=== PATIENT | female | born 2000 | race Two or more races ===

== ENCOUNTER 2024-10-26 00:22 | Inpatient (IN) | payer MEDICAID, SELFPAY ==
[2024-10-26] VITALS (16 sets, daily range): BP systolic 100–138; BP diastolic 65–83; PULSE 96–123; RESP 15–39; TEMP 36.6–39.4; O2SAT 93–98; BMI 68.6; BMI 70.9
--- NOTE | 2024-10-26 00:50 | XR_ITS ---
Examination: CT right lower leg with intravenous contrast, 2-D sagittal reconstructions. 2-D coronal reconstructions. 3-D reconstructions. Date and time of exam:October 26, 2024 0240 hours INDICATIONS: Rash redness swelling and pain right lower leg this week CTDI: vol (mGy):11 DLP: (mGycm):820 Technique: Multiple 1.25 mm axial sections of the 65 cc Isovue 370 have been obtained. 2-D sagittal and coronal reconstructions have been obtained. 3-D reconstructions have been obtained. Low dose protocols were performed. One or more of the following dose reduction techniques were used; automated exposure control, adjustment of the mA and/or KV according to patient size, use of iterative reconstruction technique. Findings: Distal femur and tibia-fibula are intact No cortical bone destruction Skin thickening anterior lower leg and edema in the subcutaneous fatty tissue No soft tissue abscess No foreign body Vasculature grossly intact, this is not a CTA study IMPRESSION: Cellulitis pattern in the lower leg Negative for osteomyelitis Negative for fasciitis or soft tissue abscess
--- NOTE | 2024-10-26 01:08 | XR_ITS ---
Examination: Duplex scan of the lower extremity, unilateral right complete Date and time of exam: October 26, 2024 0147 hours INDICATIONS: Right leg swelling and redness today, history fever the last 2 days Technique: Duplex scan of the extremity veins using B-mode/grayscale imaging and Doppler spectral analysis and color flow Attention is directed to internal echogenicity, compression and augmentation involving these veins, color flow assessment, spectral analysis Findings: Major deep venous structures in the extremity demonstrate normal course and caliber. There is no evidence of deep vein thrombosis. Normal color flow and spectral analysis Impression: Negative for DVT..
[2024-10-26] MEDS: SODIUM CHLORIDE 0.9% 1000 ML 1,000 ML 999 ML IV (01:12)
[2024-10-26] MEDS: KETOROLAC INJ 30 MG/ML VIAL IVP (01:12)
[2024-10-26] MEDS: PIPER/TAZO 3.375 GM PREMIX 3.375 GM/50 ML BAG IV ×4 (01:12→21:16)
[2024-10-26 01:39] LABS: Lactate (Lactic Acid) 1.8 mMol/L (0.4-2.0)
[2024-10-26 01:40] LABS: Basophils % (Auto) 0 % (0-2.5); Eosinophils # (Auto) 0.1 Thou/mm3 (0.0-0.5); Eosinophils % (Auto) 0 % (0-10); Hematocrit 38.1 % (36.0-46.0); Hemoglobin 12.3 g/dL (12.0-16.0); Immature Granulocytes % (Auto) 1 % (0-0); Immature Granulocytes Auto 0.11 Thou/mm3 (0.00-0.00); Lymphocytes # (Auto) 2.5 Thou/mm3 (1.0-4.8); Lymphocytes % (Auto) 15 % (10-50); Mean Corpuscular HGB Conc 32.3 g/dl (31.0-37.0); Mean Corpuscular Hemoglobin 27.4 pg (25.0-35.0); Mean Corpuscular Volume 85 fL (80-100); Monocytes # (Auto) 0.8 Thou/mm3 (0.0-0.8); Monocytes % (Auto) 5 % (0-12); Neutrophils # (Auto) 13.5 Thou/mm3 (1.8-7.7); Neutrophils % (Auto) 79 % (37-80); Nucleated Red Blood Cell % 0 /100 WBC (0); Platelet Count 347 Thou/mm3 (140-440); RDW Standard Deviation 47.8 fL (36.4-46.3); Red Blood Count 4.49 Miln/mm3 (4.00-5.20)
[2024-10-26 01:47] LABS: Sed Rate (ESR) 111 mm/hr (0-20)
--- NOTE | 2024-10-26 01:58 | PD.EDSKIN ---
ED Skin Abcess FB-RME/HPI General Chief complaint: Extremity Injury, Lower Stated complaint: RIGHT LEG REDNESS AND SWELLING, FEVER Time Seen by Provider: 10/26/24 00:49 Arrival date/time: 10/26/24 00:22 24F with history of morbid obesity presents to ED with 1 day of sudden RLE redness, swelling, pain, and fevers/chills. Patient denies open wound as well as fall/trauma. Limitations: no limitations Related Data Allergies Allergy/AdvReac Type Severity Reaction Status Date / Time No Known Allergies Allergy Verified 10/26/24 00:24 Review of Systems Review of Systems Systems Reviewed: All systems reviewed, normal except as documented Constitutional Constitutional: Reports system reviewed and no additional complaints, except as documented, Reports as per HPI, Reports chills, Reports fever(s) and Denies headache(s) ENT Ears, Nose, Mouth, and Throat: Denies disequilibrium and Denies headache(s) Cardiovascular Cardiovascular: Reports system reviewed and no additional complaints, except as documented, Denies chest pain and Denies dyspnea Respiratory Respiratory: Reports system reviewed and no additional complaints, except as documented, Denies cough and Denies dyspnea Gastrointestinal Gastrointestinal: Reports system reviewed and no additional complaints, except as documented, Denies abdominal pain, Denies nausea and Denies vomiting Integumentary/Breasts Skin/Breast: Reports as per HPI, Reports rash and Reports skin pain Neurologic Neurologic: Reports system reviewed and no additional complaints, except as documented, Denies confusion, Denies disequilibrium and Denies headache(s) Psychiatric Psychiatric: Denies confusion Past Medical History Past Medical History CARDIAC: Negative Cardiac Disorders or Congestive Heart Failure RESPIRATORY: Negative Chronic Obstructive Pulmonary Disease (COPD) or Asthma GENITOURINARY: Negative Renal Disease ENDOCRINE: Negative Diabetes Mellitus Type 1 or Diabetes Mellitus Type 2 HEMATOLOGIC: Negative Sickle Cell Disease Social History SMOKING STATUS: Never smoker ED Exam General Limitations: Present no limitations General appearance: Present alert and in no apparent distress Head Head exam: Present atraumatic Eye Eye exam: Present normal appearance, PERRL and EOMI ENT ENT exam: Present normal exam, normal oropharynx and mucous membranes moist Neck Neck exam: Present normal inspection, full ROM and trachea midline Chest Chest inspection: Present normal inspection and symmetric chest wall rise Respiratory Respiratory exam: Present normal lung sounds bilaterally Cardiovascular Cardiovascular exam: Present regular rate, normal rhythm and normal heart sounds Abdominal Exam Abdominal exam: Present soft and normal bowel sounds Extremities Exam Extremities exam: Present full ROM Expanded Lower Extremity Exam Lower leg exam: Present full ROM, tenderness, swelling and erythema Ankle exam: Present full ROM, tenderness, swelling and erythema Foot/toe exam: Present full ROM, tenderness, swelling and erythema Back Exam Back exam: Present normal inspection and full ROM Neurological Exam Neurological exam: Present alert, oriented X3 and CN II-XII intact Psychiatric Psychiatric exam: Present normal affect and normal mood Skin Skin exam: Present warm, dry, intact and normal color Course Quality Measures none Orders Category Date Time Status Bedside COVID-19 Antigen Test NOW Care 10/26/24 04:39 Active COVID-19 Screening Questionnaire NOW Care 10/26/24 04:[address] Screening NOW Care 10/26/24 00:51 Active Decision to Admit X1 Care 10/26/24 04:27 Completed Insert IV NOW Care 10/26/24 00:[address] lower leg RT w con Stat Exams 10/26/24 00:50 Taken US venous doppler LE RT Stat Exams 10/26/24 01:08 Taken A1C [Glycohemoglobin w (eAG)] Stat Lab 10/26/24 01:10 Completed Blood Culture (Lab) Stat Lab 10/26/24 01:10 Received CBC Stat Lab 10/26/24 01:10 Completed CRP [C-Reactive Protein] Stat Lab 10/26/24 01:10 Completed Comprehensive Metabolic Panel Stat Lab 10/26/24 01:10 Completed ESR [Sed Rate (ESR)] Stat Lab 10/26/24 01:10 Completed Lactate (Lactic Acid) Stat Lab 10/26/24 01:10 Completed Procalcitonin Stat Lab 10/26/24 01:10 Completed Ketorolac Inj [Toradol Inj] Med 10/26/24 00:50 Discontinued 30 mg IVP X1 ONE Piper/Tazo 3.375 gm Premix [Zosyn] Med 10/26/24 00:55 Discontinued 3.375 gm in 50 ml IV X1 Ringers Lactated 1000 ml [Lactated Ringers] 1,000 ml Med 10/26/24 02:48 Discontinued IV 999 mls/hr Sodium Chloride 0.9% 1000 ml [Ns] 1,000 ml Med 10/26/24 00:50 Discontinued IV 999 mls/hr Vancomycin Inj Med 10/26/24 01:20 Discontinued 2,000 mg .ROUTE .STK-MED ONE Vancomycin Inj 2,000 mg Med 10/26/24 01:05 Discontinued Sodium Chloride 0.9% 500 ml [Ns] 500 ml IV X1 Vancomycin Inj 2,000 mg Med 10/26/24 01:30 Discontinued Sodium Chloride 0.9% 500 ml [Ns] 500 ml IV X1 Vital Signs Vital signs: Vital Signs Temperature 100.3 F 10/26/24 00:43 Pulse Rate 123 H 10/26/24 00:43 Respiratory Rate 20 10/26/24 00:43 Blood Pressure 135/82 H 10/26/24 00:43 Pulse Oximetry (%) 98 10/26/24 00:43 Oxygen Delivery Method Room Air 10/26/24 00:43 O2 at 98% on RA and WNLs Skin / Abscess / Foreign Body MDM Narrative MDM Narrative:: 24F with history of morbid obesity presents to ED with 1 day of sudden RLE redness, swelling, pain, and fevers/chills. Patient denies open wound as well as fall/trauma. Physical exam reveals RLE redness, swelling, and tenderness. Gait normal. Patient is mildly febrile, but does not appear toxic. US no DVT. Leukocytosis 17k. Procal mildly elevated. Lactate normal. ESR/CRP significantly elevated. Sepsis alert called. Upon reassessment, patient is feeling better. CMP unremarkable except for elevated glucose. A1C of 7.5% confirms DM status. CT shows cellulitis. Spoke to IM resident who reports to Dr. Garcia, who will admit patient for Obs and IV ABX. Patient data External records reviewed:: None Clinical information provided by:: patient Social determinants that could affect healthcare access:: none Patient has the following chronic illnesses:: none How is presenting disease/condition affected by chronic disease/condition?: no chronic disease Evaluation data The following diagnostics were reviewed and interpreted by me:: lab results and radiology exam(s) Lab and/or radiology exams considered but not ordered:: ordered Interpretation Summary: above Medications / Prescriptions Medications or Prescriptions considered but not ordered:: ordered Medication administrations:: Medication Administration History Acetaminophen (Acetaminophen 325 Mg Tablet) 650 mg PO Q6H PRN PRN Reason: pain 1-3 and Fever >100.4 Stop: 11/25/24 04:52 Hydrocodone Bitart/Acetaminophen (Hydrocodone/Apap 5/325 Tablet) 1 tab PO Q4HR PRN PRN Reason: PAIN SCALE 4-10(Mod-Sev Stop: 10/31/24 04:52 Dextrose (Dextrose 50%-Water Inj 50 Ml Syringe) 25 ml IV Q15MIN PRN PRN Reason: BG 50-70 responsive npo pt Stop: 11/25/24 04:52 Dextrose (Dextrose 50%-Water Inj 50 Ml Syringe) 50 ml IV Q15MIN PRN PRN Reason: BG <50 OR BG <70 & pt unresponsive Stop: 11/25/24 04:52 Glucagon (Glucagon Inj 1 Mg Vial) 1 mg IM Q15MIN PRN PRN Reason: BG <70, and no IV access Heparin Sodium (Porcine) (Heparin Sod Inj 5000 Unit/Ml Vial) 5,000 unit SC Q8HR [facility] Stop: 11/09/24 05:59 Last Admin: 10/26/24 05:29 Dose: 5,000 unit Documented By: DARLINE Co-signed By: NICOLE Sodium Chloride (Ns) 1,000 mls @ 150 mls/hr IV .Q6H40M [facility] Stop: 10/26/24 11:39 Last Admin: 10/26/24 05:30 Dose: 150 mls/hr Documented By: DARLINE Piperacillin/Tazobactam/Dextrose (Zosyn) 3.375 gm in 50 mls @ 12.5 mls/hr IV Q8HR [facility]; Protocol Stop: 11/02/24 05:59 Last Admin: 10/26/24 05:30 Dose: 12.5 mls/hr Documented By: DARLINE Insulin Human Lispro (Insulin Lispro (Admelog) 1 Unit/0.01 Ml Unit) 0 unit SC [facility]; Protocol Stop: 11/25/24 07:29 Ondansetron HCl (Ondansetron Inj 2 Mg/Ml Inj 2 Ml) 4 mg IVP Q6H PRN; Protocol PRN Reason: NAUSEA OR VOMITING Stop: 11/25/24 04:52 Pharmacy Consult (Vancomycin Pharmacy To Dose 1 Each Each) 1 each IV QDAY [facility] Stop: 11/25/24 08:59 Discontinued Medications Sodium Chloride (Ns) 1,000 mls @ 999 mls/hr IV .Q1H1M ONE Stop: 10/26/24 01:50 Last Infusion: 10/26/24 02:19 Dose: Infused Documented By: Admin: 10/26/24 01:12 Dose: 999 mls/hr Documented By: NICOLE Vancomycin HCl 2,000 mg/ (Sodium Chloride) 500 mls @ 150 mls/hr IV X1 ONE Stop: 10/26/24 04:49 Last Admin: 10/26/24 02:11 Dose: 150 mls/hr Documented By: DARLINE Piperacillin/Tazobactam/Dextrose (Zosyn) 3.375 gm in 50 mls @ 100 mls/hr IV X1 ONE Stop: 10/26/24 01:24 Last Infusion: 10/26/24 01:49 Dose: Infused Documented By: Admin: 10/26/24 01:12 Dose: 100 mls/hr Documented By: NICOLE Vancomycin HCl 2,000 mg/ (Sodium Chloride) 500 mls @ 300 mls/hr IV X1 ONE Stop: 10/26/24 02:44 Last Admin: 10/26/24 02:12 Dose: Not Given Documented By: DARLINE Non-Admin Reason: Discontinued Lactated Ringer's (Lactated Ringers) 1,000 mls @ 999 mls/hr IV .Q1H1M ONE Stop: 10/26/24 03:48 Last Infusion: 10/26/24 03:58 Dose: Infused Documented By: Admin: 10/26/24 03:04 Dose: 999 mls/hr Documented By: CVJalil Ketorolac Tromethamine (Ketorolac Inj 30 Mg/Ml Vial) 30 mg IVP X1 ONE Stop: 10/26/24 00:51 Last Admin: 10/26/24 01:12 Dose: 30 mg Documented By: NICOLE Vancomycin HCl (Vancomycin Inj 1,000 Mg Vial) Confirm Administered Dose 2,000 mg .ROUTE .STK-MED ONE Stop: 10/26/24 01:21 Last Admin: 10/26/24 02:03 Dose: Not Given Documented By: CB Non-Admin Reason: Override Medication above Consultations Consultation(s) initiated? (list below): Yes Diagnosis Skin/Abscess Differential Diagnosis: abscess of skin or subcutaneous tissue, viral exanthem, dermatophytosis, urticaria, herpes zoster, allergic reaction to drug, cellulitis, eczema, insect bites, impetigo, contact dermatitis and other (nec fasc) Most likely diagnosis given after review of the tests above:: cellulitis and diabetes Admission Indicated Admission indicated?: indicated Admission Request Was there a request for admission?: Yes Admission Attestation Admission request attestation: Discussed case with [Dr. Garcia] from Hospitalist service regarding admission. Discussed patients ED course, exam findings, labs, and radiology results. The Hospitalist [agrees] to accept the patient for admission. Disposition Plan Disposition Plan: Admit Discharge Plan Plan Patient Disposition: Other Care w/in Hosp ([facility]) Problem List Clinical Impression: Cellulitis, Diabetes mellitus
[2024-10-26 02:00] LABS: Glucose Estimated Average 169 mg/dL (80-131); Hemoglobin A1C 7.5 % Hgb (4.8-6.0)
[2024-10-26] MEDS: Vancomycin Inj 2,000 MG in SODIUM CHLORIDE 0.9% 500 ML 500 ML 150 MG IV (02:11)
[2024-10-26 02:14] LABS: Alanine Aminotransferase 62 U/L (10-49); Albumin, Serum 4.4 gm/dL (3.5-5.0); Albumin/Globulin Ratio 1.2 (1.2-2.2); Alkaline Phosphatase 108 U/L (46-116); Anion Gap 11 (7-16); Aspartate Amino Transferase 54 U/L (0-34); BUN/Creatinine Ratio 12 Ratio (12-20); Bilirubin,Total 0.9 mg/dL (0.3-1.2); Blood Urea Nitrogen 11 mg/dL (9-23); C-Reactive Protein 25.6 mg/dL (0.0-0.9); Calcium 9.3 mg/dL (8.3-10.6); Calcium (Corrected) 9.3 mg/dL (8.5-10.1); Carbon Dioxide 23.8 mMol/L (20.0-31.0); Chloride 101 mMol/L (98-107); Creatinine (Component) 0.9 mg/dL (0.6-1.3); Estimated Creatinine Clearance 161.8 mL/min (>60); Globulin 3.7 gm/dL (2.3-3.5); Glucose 195 mg/dL (74-106); Osmolality,Calculated 276 (275-295); Potassium 3.4 mMol/L (3.4-5.1); Procalcitonin 1.68 ng/ml (0.0-0.49); Sodium 136 mMol/L (136-145); Total Protein 8.1 gm/dL (5.7-8.2); eGFR > 60 See Note
[2024-10-26] MEDS: RINGERS LACTATED 1000 ML 1,000 ML 999 ML IV (03:04)
--- NOTE | 2024-10-26 03:54 | PRELIM_ITS ---
Right lower extremity venous Doppler ultrasound with wave Doppler spectral analysis. October 26, 2024 0147 hours Clinical history: Rule out deep vein thrombosis. Technique: Duplex scan of the right lower extremity deep venous systems was performed utilizing 2D grayscale imaging, Doppler spectral analysis and color flow Doppler and with compression. Comparison: None. Findings: Melara scale, color flow and spectral Doppler evaluation of the right lower extremity deep veins were performed. The common femoral, superficial femoral and popliteal veins are patent and compressible. Normal respiratory variation is noted. There is no evidence of occlusive or nonocclusive thrombus. The great saphenous vein is patent and compressible at the level of the saphenofemoral junction. Hypoechoic nodule in the great saphenous vein area, probably lymph node. Edema. Impression: 1. No sonographic evidence of deep venous thrombosis in the right lower extremity. 2. Edema. 3. Lymph nodes adjacent to the great saphenous vein, possibly reactive. Please, correlate clinically. Report Electronically Signed By: Leonard Martell 10/26/2024 3:54:17 AM [EST]
--- NOTE | 2024-10-26 04:23 | PRELIM_ITS ---
CT angiogram of the right lower extremity with intravenous contrast (axial sections with sagittal and coronal reformats) October 26, 2024 at 0240 hours Clinical History: Rule out necrotizing fasciitis. Comparison: Ultrasound dated October 26, 2024. Findings: The right common femoral, superficial, deep femoral, popliteal, anterior tibial, peroneal and posterior tibial arteries are patent. No evidence of soft tissue emphysema. Subcutaneous fat edema. Skin thickening. Impression: The vasculature is patent. No evidence of necrotizing fasciitis. Subcutaneous fat edema and skin thickening, suspicious for cellulitis. Report Electronically Signed By: Leonard Martell 10/26/2024 4:25:17 AM [EST]
--- NOTE | 2024-10-26 05:00 | ESHP_ITS ---
Documentation for date of: 10/26/24 HPI History of Present Illness Chief complaint: R LE swelling and redness History of present illness: 24-year-old female with no relevant past medical history was admitted to the hospital on 10/26/2024 for observation given that patient came into the ER with complaints of right lower extremity, swelling and redness that started today. On assessment patient stated that she has had fevers and chills for around 2 days and these were accompanied with weakness and tiredness, but she does not recall having any sick contacts and she did not have any cough, shortness of breath, chest pain, nausea, vomiting, diarrhea, or burning sensation during urination. Patient stated that her right lower extremity got swollen and more red today in the morning and then at went away in the afternoon, but later in the evening came back and was much worse the redness and swelling. Patient states that she does not recall any trauma, insect or animal bites, or any injuries to this leg. She stated that it is nontender and did not hurt her with passive or active motion and she could bear weight.. Otherwise patient had no other complaints. Patient will be placed on observation given the significantly elevated inflammatory markers along with the extent of patient's cellulitis which extends from the right lower extremity up to the mid/lower posterior thigh. ED course: Initially patient came in tachycardic, mildly hypertensive, and low-grade fever. Initial labs were relevant for leukocytosis, elevated ESR (111), A1c of 7.5, elevated CRP at 25.6, and elevated procalcitonin at 1.68. Initial imaging included lower extremity CT which did not show any signs of necrotizing fasciitis, but did show cellulitis. Additional imaging included right lower extremity venous Doppler which was negative for any DVT. In the ED patient received vancomycin, Zosyn, and 2 L of IV fluids. PMH: None per patient Medications: None per patient Allergies: NKDA Social Hx: Denies any smoking, alcohol, or illicit drugs. Review of Systems Review of Systems Systems Reviewed: All systems reviewed, normal except as documented Past Medical History Past Medical History CARDIAC: Negative Cardiac Disorders or Congestive Heart Failure RESPIRATORY: Negative Chronic Obstructive Pulmonary Disease (COPD) or Asthma GENITOURINARY: Negative Renal Disease ENDOCRINE: Negative Diabetes Mellitus Type 1 or Diabetes Mellitus Type 2 HEMATOLOGIC: Negative Sickle Cell Disease Social History SMOKING STATUS: Never smoker Exam Vital Signs Temp Pulse Resp BP Pulse Ox O2 Del Method 99.7 F 97 29 H 126/68 94 L Room Air 10/26/24 02:18 10/26/24 04:35 10/26/24 04:35 10/26/24 04:35 10/26/24 04:35 10/26/24 04:35 Narrative Exam General: A/O x3, no acute distress Eyes: PERRL, EOMI. Anicteric, vision grossly intact. Ears: No ear pain, no ear discharge, Hearing grossly intact. Nose: No nasal discharge. Mouth/Throat: Moist mucous membranes, no redness, no lesions. Neck: Neck supple, non-tender, no cervical lymphadenopathy. Lungs: Clear TRACY to auscultation and percussion, No accessory muscle use. Cardio: Normal S1/S2, regular rhythm, no murmurs, no JVD Abdomen: Soft, non-tender, no palpable masses, peristalsis present, no guarding or rebound. Extremities: Symmetrical, no significant deformities, no peripheral edema , non-tender, peripheral pulses presents. Right lower extremity showed blanching erythema involving entire lower extremity and extending towards the posterior right thigh, this was not tender on palpation, and did not appreciate any crepitus. Skin: No rashes, no lesions, warm to touch. Neuro: No focal neurological deficits. Motor and sensory intact Psych: Cooperative, appropriate mood and effect. Results: Labs 10/26/24 06:15 10/26/24 01:10 Labs: Short CBC 10/26/24 Range/Units 01:10 WBC 17.0 H (3.6-11.0) Thou/mm3 Hgb 12.3 (12.0-16.0) g/dL Hct 38.1 (36.0-46.0) % Plt Count 347 (140-440) Thou/mm3 BMP 10/26/24 01:10 Sodium 136 Potassium 3.4 Chloride 101 Carbon Dioxide 23.8 BUN 11 Creatinine 0.9 Glucose 195 H Calcium 9.3 Liver Function 10/26/24 Range/Units 01:10 Total Bilirubin 0.9 (0.3-1.2) mg/dL AST 54 H (0-34) U/L ALT 62 H (10-49) U/L Alkaline Phosphatase 108 (46-116) U/L Albumin 4.4 (3.5-5.0) gm/dL Quality Measures Quality Measures none Medications Home Medications and Allergies Allergies Allergy/AdvReac Type Severity Reaction Status Date / Time No Known Allergies Allergy Verified 10/26/24 00:24 Visit Medications Acetaminophen (Acetaminophen 325 Mg Tablet) 650 mg PO Q6H PRN PRN Reason: pain and Fever >100.4 Stop: 11/25/24 04:52 Hydrocodone Bitart/Acetaminophen (Hydrocodone/Apap 5/325 Tablet) 1 tab PO Q4HR PRN PRN Reason: PAIN SCALE 4-10(Mod-Sev Stop: 10/31/24 04:52 Dextrose (Dextrose 50%-Water Inj 50 Ml Syringe) 25 ml IV Q15MIN PRN PRN Reason: BG 50-70 responsive npo pt Stop: 11/25/24 04:52 Dextrose (Dextrose 50%-Water Inj 50 Ml Syringe) 50 ml IV Q15MIN PRN PRN Reason: BG <50 OR BG <70 & pt unresponsive Stop: 11/25/24 04:52 Glucagon (Glucagon Inj 1 Mg Vial) 1 mg IM Q15MIN PRN PRN Reason: BG <70, and no IV access Heparin Sodium (Porcine) (Heparin Sod Inj 5000 Unit/Ml Vial) 5,000 unit SC Q8HR [facility] Stop: 11/09/24 05:59 Sodium Chloride (Ns) 1,000 mls @ 150 mls/hr IV .Q6H40M [facility] Stop: 10/26/24 11:39 Piperacillin/Tazobactam/Dextrose (Zosyn) 50 mls @ 100 mls/hr IV Q6HR [place] Stop: 11/02/24 09:24 Insulin Human Lispro (Insulin Lispro (Admelog) 1 Unit/0.01 Ml Unit) 0 unit SC [facility]; Protocol Stop: 11/25/24 07:29 Ondansetron HCl (Ondansetron Inj 2 Mg/Ml Inj 2 Ml) 4 mg IVP Q6H PRN; Protocol PRN Reason: NAUSEA OR VOMITING Stop: 11/25/24 04:52 Pharmacy Consult (Vancomycin Pharmacy To Dose 1 Each Each) 1 each IV QDAY [facility] Stop: 11/25/24 08:59 Discontinued Medications Sodium Chloride (Ns) 1,000 mls @ 999 mls/hr IV .Q1H1M ONE Stop: 10/26/24 01:50 Last Infusion: 10/26/24 02:19 Dose: Infused Vancomycin HCl 2,000 mg/ (Sodium Chloride) 500 mls @ 150 mls/hr IV X1 ONE Stop: 10/26/24 04:49 Last Admin: 10/26/24 02:11 Dose: 150 mls/hr Piperacillin/Tazobactam/Dextrose (Zosyn) 3.375 gm in 50 mls @ 100 mls/hr IV X1 ONE Stop: 10/26/24 01:24 Last Infusion: 10/26/24 01:49 Dose: Infused Vancomycin HCl 2,000 mg/ (Sodium Chloride) 500 mls @ 300 mls/hr IV X1 ONE Stop: 10/26/24 02:44 Last Admin: 10/26/24 02:12 Dose: Not Given Lactated Ringer's (Lactated Ringers) 1,000 mls @ 999 mls/hr IV .Q1H1M ONE Stop: 10/26/24 03:48 Last Infusion: 10/26/24 03:58 Dose: Infused Ketorolac Tromethamine (Ketorolac Inj 30 Mg/Ml Vial) 30 mg IVP X1 ONE Stop: 10/26/24 00:51 Last Admin: 10/26/24 01:12 Dose: 30 mg Assessment & Plan Plan 24-year-old female with no relevant past medical history was admitted to the hospital on 10/26/2024 on observation for right lower extremity cellulitis. #Right lower extremity cellulitis #Leukocytosis Patient came in with complaints of right lower extremity redness and swelling which started today She also mentions she had some fevers and chills for the past few days. Patient states it is nontender with active or passive motion and she is able to bear weight. WBC 17, ESR 111, CRP 25.6, procalcitonin 1.68 LRINEC score of 7 points indicate intermediate risk for necrotizing soft tissue infection. On physical assessment patient did not have any pain with passive or active motion therefore less likely compartment syndrome present at this time and there was no crepitus appreciated on physical exam, but given rapid course of development and there was still concern for NSTI. Lower extremity CT showed cellulitis, but no signs of necrotizing fasciitis Venous Doppler lower extremity did not show any signs of DVT Plan: Vancomycin and Zosyn (10/26/2024?) IV fluids Repeated CRP, lactic acid, and ESR Blood cultures ordered Consider surgical consult if patient does develop any signs of NSTI Will continue to monitor #Newly diagnosed DM2 A1c 7.5 Plan: ISS Hypoglycemia protocol ordered Carb consistent diet Disposition: Patient in obs for R LE cellulitis. Diet: Carb consistent GI prophylaxis: not indicated DVT prophylaxis: heparin subcu Code: full Case disclosed with Attending Dr. Jose Schaffer PGY1 Disclaimer: Even though this this note was dictated by speech recognition and even though it was carefully revised there may still be minor errors in auto body technician due to voice recognition software. Attending Provider Attestation/Addendum I reviewed labs, imaging, EKG, home medications and prior available records. Face to face evaluation was performed by me. I have personally examined the patient and discussed assessment and plan with the IM team. I reviewed the resident note and agree with the plan with exceptions as below. Right lower extremity cellulitis New onset diabetes mellitus, type I versus type II Morbid obesity Transaminitis Start IV vancomycin/Zosyn Follow-up cultures Right lower extremity elevation Management of pain/nausea/headaches as needed Trend LFTs Start insulin therapy and monitor fingersticks Low carb consistent diet. Diabetic education Outpatient weight management
[2024-10-26] MEDS: HEPARIN SOD INJ 5000 UNIT/ML VIAL SC ×3 (05:29→21:26)
[2024-10-26] MEDS: SODIUM CHLORIDE 0.9% 1000 ML 1,000 ML 150 ML IV (05:30)
[2024-10-26 06:22] LABS: Lactate (Lactic Acid) 0.9 mMol/L (0.4-2.0)
[2024-10-26 06:30] LABS: Basophils % (Auto) 0 % (0-2.5); Eosinophils # (Auto) 0.1 Thou/mm3 (0.0-0.5); Eosinophils % (Auto) 0 % (0-10); Hematocrit 32.8 % (36.0-46.0); Hemoglobin 10.3 g/dL (12.0-16.0); Immature Granulocytes % (Auto) 1 % (0-0); Lymphocytes # (Auto) 1.8 Thou/mm3 (1.0-4.8); Lymphocytes % (Auto) 14 % (10-50); Mean Corpuscular HGB Conc 31.4 g/dl (31.0-37.0); Mean Corpuscular Hemoglobin 26.8 pg (25.0-35.0); Mean Corpuscular Volume 85 fL (80-100); Monocytes # (Auto) 0.6 Thou/mm3 (0.0-0.8); Monocytes % (Auto) 5 % (0-12); Neutrophils # (Auto) 10.3 Thou/mm3 (1.8-7.7); Neutrophils % (Auto) 80 % (37-80); Nucleated Red Blood Cell % 0 /100 WBC (0); Platelet Count 257 Thou/mm3 (140-440); RDW Standard Deviation 48.9 fL (36.4-46.3); Red Blood Count 3.84 Miln/mm3 (4.00-5.20); White Blood Count 12.9 Thou/mm3 (3.6-11.0)
[2024-10-26 07:04] LABS: Sed Rate (ESR) 78 mm/hr (0-20)
[2024-10-26 07:18] LABS: Alanine Aminotransferase 46 U/L (10-49); Albumin, Serum 3.5 gm/dL (3.5-5.0); Albumin/Globulin Ratio 1.1 (1.2-2.2); Alkaline Phosphatase 84 U/L (46-116); Anion Gap 10 (7-16); Aspartate Amino Transferase 37 U/L (0-34); BUN/Creatinine Ratio 14 Ratio (12-20); Bilirubin,Total 0.7 mg/dL (0.3-1.2); Blood Urea Nitrogen 10 mg/dL (9-23); C-Reactive Protein > 10.0 mg/dL (0.0-0.9); Calcium 8.2 mg/dL (8.3-10.6); Calcium (Corrected) 8.6 mg/dL (8.5-10.1); Carbon Dioxide 23.7 mMol/L (20.0-31.0); Chloride 104 mMol/L (98-107); Cholesterol 103 mg/dL (132-200); Creatinine (Component) 0.7 mg/dL (0.6-1.3); Estimated Creatinine Clearance 212.8 mL/min (>60); Globulin 3.1 gm/dL (2.3-3.5); Glucose 187 mg/dL (74-106); HDL Cholesterol 26 mg/dL (40-60); LDL Cholesterol,Calculated 54 mg/dL (0-130); Magnesium 1.7 mg/dL (1.6-2.6); Osmolality,Calculated 279 (275-295); Potassium 3.5 mMol/L (3.4-5.1); Sodium 138 mMol/L (136-145); Total Protein 6.6 gm/dL (5.7-8.2); Triglycerides 116 mg/dL (30-150); eGFR > 60 See Note
[2024-10-26] MEDS: INSULIN LISPRO (AdmeLOG) 1 UNIT/0.01 ML UNIT SC ×4 (07:29→21:25)
[2024-10-26] MEDS: VANCOMYCIN/D5W 1,250 MG IVPB 250 ML 120 MG IV ×3 (07:30→21:12)
--- NOTE | 2024-10-26 09:58 | PD.RESPRO ---
Documentation for date of: 10/26/24 Subjective Subjective Interval history: Overnight admission. Seen and examined at bedside and cellulitis demarcated to further monitor progression. No fevers, chills, sweats overnight but did endorse same symptoms prior to coming to ED. Denies any loss of sensation or lower extremity weakness. States that she cannot recall any events that may have led to rash on lower extremities but developed over 24-hour period. Vital signs show heart rate 106 but otherwise vital signs stable. CBC showed improved leukocytosis from 17 to 13, A1c 7.5%, downtrending LFTs. Will continue with vancomycin and Zosyn for today and likely de-escalate tomorrow, blood cultures pending. Exam Vital Signs Temp Pulse Resp BP Pulse Ox O2 Del Method 98.4 F 106 H 15 138/73 H 96 Room Air 10/26/24 07:43 10/26/24 07:43 10/26/24 07:43 10/26/24 07:43 10/26/24 07:43 10/26/24 06:33 Narrative Exam General: pleasant, morbidly obese, AOx3, no acute distress, able to speak full sentences HEENT: NC/AT, mucous membranes moist, bilateral sclera anicteric Cardiovascular: regular rate and rhythm, S1/S2 present, no murmurs appreciated Pulmonary: clear to auscultation bilaterally, no rales/rhonchi/wheezes Abdominal: soft, non-tender, non-distended, no rebound/guarding, normal bowel sounds present Musculoskeletal: normal ROM, no peripheral edema Skin: right lower extremity with erythematous, cellulitic rash that is warm to touch and demarcated (extends to interior thigh) Neuro: CN II-XII intact, no focal deficits Objective Labs 10/27/24 05:12 10/27/24 05:12 Labs: Laboratory Results - last 24 hr 10/26/24 10/26/24 01:10 06:15 WBC 17.0 H 12.9 H RBC 4.49 3.84 L Hgb 12.3 10.3 L D Hct 38.1 32.8 L MCV 85 85 MCH 27.4 26.8 MCHC 32.3 31.4 RDW Std Deviation 47.8 H 48.9 H Plt Count 347 257 D Neut % (Auto) 79 80 Lymph % (Auto) 15 14 [place] % (Auto) 5 5 Eos % (Auto) 0 0 Baso % (Auto) 0 0 Neut # (Auto) 13.5 H 10.3 H Lymph # (Auto) 2.5 1.8 [place] # (Auto) 0.8 0.6 Eos # (Auto) 0.1 0.1 Baso # (Auto) 0.0 0.0 Immature Gran # (Auto) 0.11 H 0.10 H Absolute Nucleated RBC 0.00 0.00 Immature Gran % 1 H 1 H Nucleated RBC % 0 0 ESR 111 H 78 H Sodium 136 138 Potassium 3.4 3.5 Chloride 101 104 Carbon Dioxide 23.8 23.7 Anion Gap 11 10 BUN 11 10 Creatinine 0.9 0.7 Estim Creat Clear Calc 161.8 212.8 eGFR > 60 > 60 BUN/Creatinine Ratio 12 14 Glucose [address] Glu mg/dL 169 H Hemoglobin A1c 7.5 H Calculated Osmolality 276 279 Lactic Acid 1.8 0.9 Calcium 9.3 8.2 L Corrected Calcium 9.3 8.6 Magnesium 1.7 Total Bilirubin 0.9 0.7 AST 54 H 37 H ALT 62 H 46 Alkaline Phosphatase 108 84 D C-Reactive Prot, Quant 25.6 H > 10.0 H Total Protein 8.1 6.6 Albumin 4.4 3.5 D Globulin 3.7 H 3.1 Albumin/Globulin Ratio 1.2 1.1 L Triglycerides 116 Cholesterol 103 L LDL Cholesterol, Calc 54 HDL Cholesterol 26 L Cholesterol/HDL Ratio 4.0 Procalcitonin 1.68 H Quality Measures Quality Measures none Assessment & Plan Assessment Current Active Medications: Generic Name Dose Route Start Last Admin Trade Name Lorneq PRN Reason Stop Dose Admin Acetaminophen 650 mg 10/26/24 04:53 Acetaminophen 325 Mg Tablet PO 11/25/24 04:52 Q6H PRN pain 1-3 and Fever >100.4 Hydrocodone Bitart/Acetaminophen 1 tab 10/26/24 04:53 Hydrocodone/Apap 5/325 Tablet PO 10/31/24 04:52 Q4HR PRN PAIN SCALE 4-10(Mod-Sev Dextrose 25 ml 10/26/24 04:53 Dextrose 50%-Water Inj 50 Ml Syringe IV 11/25/24 04:52 Q15MIN PRN BG 50-70 responsive npo pt Dextrose 50 ml 10/26/24 04:53 Dextrose 50%-Water Inj 50 Ml Syringe IV 11/25/24 04:52 Q15MIN PRN BG <50 OR BG <70 & pt unresponsive Glucagon 1 mg 10/26/24 04:53 Glucagon Inj 1 Mg Vial IM Q15MIN PRN BG <70, and no IV access Heparin Sodium (Porcine) 5,000 unit 10/26/24 06:00 10/26/24 05:29 Heparin Sod Inj 5000 Unit/Ml Vial SC 11/09/24 05:59 5,000 unit Q8HR [place] Administration Piperacillin/Tazobactam/Dextrose 3.375 gm in 50 mls @ 12.5 mls/hr 10/26/24 06:00 10/26/24 06:08 Zosyn IV 11/02/24 05:59 Infused Q8HR KAROLINA Infusion Protocol Vancomycin HCl/Dextrose 250 mls @ 120 mls/hr 10/26/24 07:30 10/26/24 07:30 Vancomycin/D5w 1,250 Mg Ivpb IV 11/02/24 07:29 120 mls/hr Q8HR KAROLINA Administration Protocol Insulin Human Lispro 0 unit 10/26/24 07:30 10/26/24 07:29 Insulin Lispro (Admelog) 1 Unit/0.01 Ml Unit SC 11/25/24 07:29 1 unit ACHS KAROLINA Administration Protocol Ondansetron HCl 4 mg 10/26/24 04:53 Ondansetron Inj 2 Mg/Ml Inj 2 Ml IVP 11/25/24 04:52 Q6H PRN NAUSEA OR VOMITING Protocol Pharmacy Consult 1 each 10/26/24 09:00 Vancomycin Pharmacy To Dose 1 Each Each IV 11/25/24 08:59 QDAY PRN CONSULT Plan Bijal Yee is a 24-year-old female with past medical history of newly diagnosed diabetes mellitus and morbid obesity who is admitted for right lower extremity cellulitis and newly diagnosed diabetes. #Right lower extremity cellulitis Endorsed 2 to 3 days of fever, chills, sweats and then developed right lower extremity cellulitis that extends up to anterior thigh. Denies any loss of sensation or lower extremity weakness. CT lower extremity showed edema and subcutaneous fatty tissue but no signs of fasciitis or abscesses. Venous Doppler negative for DVT. ? Vancomycin and Zosyn (10/26-) ? Blood culture 10/26: NGTD ? Continue to monitor demarcations #Newly diagnosed diabetes mellitus Given body habitus likely type 2 diabetes mellitus. A1c 7.5%. ? SSI ? Hypoglycemia protocol in place ? Carb consistent low diet ? Diabetic education ? Referral to registered dietitian Hospital management: Disposition: IV antibiotics, blood cultures Fluids: Not indicated Diet: Carb consistent low Lines: PIV DVT prophylaxis: Heparin SC every 8 hours GI prophylaxis: Not indicated Luis: None indicated CODE STATUS: full code ----- Plan discussed with attending physician Dr. Jackelyn Turpin MD PGY-1 Internal Medicine Attending Provider Attestation/Addendum I have examined the patient, reviewed labs and imaging findings, discussed the case with the resident(s), and reviewed entered orders. I agree with the plan of care as outlined in this note, with these additional summaries/recommendations: Patient seen at bedside. She endorses right lower extremity discomfort and pain. Patient has significant cellulitis of right lower extremity up to mid thigh. Borders are marked and we will monitor progression or improvement of rash. Continue IV antibiotics and follow-up blood culture results when available. Leukocytosis improving although not resolved. Patient diagnosed with new onset diabetes mellitus type 2 with hyperglycemia. She denies a previous history. A1c 7.5%. Continue diabetic diet. Continue insulin sliding scale with Accu-Cheks. Target blood sugar of 140-180 while hospitalized. Patient was counseled on the importance of weight loss and showed understanding. Patient in agreement with the plan and all questions answered to satisfaction. Please see residents note for additional details and management. Dr. Jackelyn MD
[2024-10-26] MEDS: ACETAMINOPHEN 325 MG TABLET 650 MG PO (15:58)
[2024-10-26] MEDS: IBUPROFEN TAB 400 MG TABLET PO (17:26)
[2024-10-27] VITALS (8 sets, daily range): BP systolic 99–132; BP diastolic 71–85; PULSE 87–109; RESP 16–20; TEMP 36.2–38.1; O2SAT 94–98; BMI 70.6
[2024-10-27] MEDS: ONDANSETRON INJ 2 MG/ML INJ 2 ML 4 MG IVP (04:45)
[2024-10-27] MEDS: PIPER/TAZO 3.375 GM PREMIX 3.375 GM/50 ML BAG IV ×3 (05:49→21:34)
[2024-10-27] MEDS: HEPARIN SOD INJ 5000 UNIT/ML VIAL SC ×3 (05:52→21:43)
[2024-10-27 05:54] LABS: Basophils % (Auto) 0 % (0-2.5); Eosinophils # (Auto) 0.1 Thou/mm3 (0.0-0.5); Eosinophils % (Auto) 1 % (0-10); Hemoglobin 10.6 g/dL (12.0-16.0); Immature Granulocytes % (Auto) 1 % (0-0); Immature Granulocytes Auto 0.09 Thou/mm3 (0.00-0.00); Lymphocytes # (Auto) 1.6 Thou/mm3 (1.0-4.8); Lymphocytes % (Auto) 14 % (10-50); Mean Corpuscular HGB Conc 31.2 g/dl (31.0-37.0); Mean Corpuscular Hemoglobin 26.6 pg (25.0-35.0); Mean Corpuscular Volume 85 fL (80-100); Monocytes # (Auto) 0.8 Thou/mm3 (0.0-0.8); Monocytes % (Auto) 8 % (0-12); Neutrophils # (Auto) 8.4 Thou/mm3 (1.8-7.7); Neutrophils % (Auto) 76 % (37-80); Nucleated Red Blood Cell % 0 /100 WBC (0); Platelet Count 310 Thou/mm3 (140-440); RDW Standard Deviation 49.3 fL (36.4-46.3); Red Blood Count 3.98 Miln/mm3 (4.00-5.20)
[2024-10-27 06:12] LABS: Alanine Aminotransferase 41 U/L (10-49); Albumin, Serum 4.1 gm/dL (3.5-5.0); Albumin/Globulin Ratio 1.2 (1.2-2.2); Alkaline Phosphatase 91 U/L (46-116); Anion Gap 12 (7-16); Aspartate Amino Transferase 31 U/L (0-34); BUN/Creatinine Ratio 10 Ratio (12-20); Bilirubin,Total 0.6 mg/dL (0.3-1.2); Blood Urea Nitrogen 8 mg/dL (9-23); Calcium 8.8 mg/dL (8.3-10.6); Calcium (Corrected) 8.8 mg/dL (8.5-10.1); Chloride 102 mMol/L (98-107); Creatinine (Component) 0.8 mg/dL (0.6-1.3); Estimated Creatinine Clearance 186.2 mL/min (>60); Globulin 3.4 gm/dL (2.3-3.5); Glucose 188 mg/dL (74-106); Osmolality,Calculated 278 (275-295); Potassium 3.4 mMol/L (3.4-5.1); Sodium 138 mMol/L (136-145); Total Protein 7.5 gm/dL (5.7-8.2); Vancomycin,Trough 9.9 mcg/mL (5.0-10.0); eGFR > 60 See Note
[2024-10-27] MEDS: VANCOMYCIN/D5W 1,250 MG IVPB 250 ML 120 MG IV ×3 (06:21→22:43)
[2024-10-27] MEDS: INSULIN LISPRO (AdmeLOG) 1 UNIT/0.01 ML UNIT SC ×3 (07:36→16:56)
[2024-10-27] MEDS: DiphenhydrAMINE ELIX 25 MG/10 ML UDC PO (07:54)
[2024-10-27] MEDS: ACETAMINOPHEN 325 MG TABLET 650 MG PO ×2 (07:54→18:48)
--- NOTE | 2024-10-27 10:03 | PC.SS ---
Patient Bijal Yee is a 24-year-old female admitted for R LE Cellulitis. SS conducted bedside contact with the patient to conduct initial assessment and to discuss discharge planning. Patient confirmed demographic information. Patient's surrogate decision maker is her mother, Felicia Bailey [phone]. Patient reports she lives at home with family. Patient is able to compete all ADL's independently. Patient does not utilize any source of DME to assist with ambulation. Patient will return back home when medically cleared. Discharge plan: Home Next of Kin,Mother, Felicia Bailey
[2024-10-27] MEDS: DOXYCYCLINE INJ 100 MG in SODIUM CHLORIDE 0.9% (POP) 100 ML IV ×2 (10:12→20:25)
[2024-10-27] MEDS: IBUPROFEN TAB 400 MG TABLET PO (11:01)
--- NOTE | 2024-10-27 11:45 | ESPR_ITS ---
Documentation for date of: 10/27/24 Subjective Subjective Interval history: No acute events overnight. Seen and examined at bedside and patient states she feels shocklike sensations around her ankle, likely secondary to significant edema from cellulitis. Patient has had recurrent fevers, Tmax of 103 ?F in evening yesterday, temperature 100.4 ?F this morning that required Tylenol and ibuprofen. Rash itself appears to be improved with an anterior thigh but more erythematous along cruz area. Will continue to monitor margins and current IV antibiotics with addition of doxycycline given patient had recently been to a [facility]. CBC showed improving leukocytosis, stable hemoglobin, CHEM panel largely unremarkable. Exam Vital Signs Temp Pulse Resp BP Pulse Ox O2 Del Method 100.4 F 103 H 18 102/71 95 Room Air 10/27/24 07:54 10/27/24 07:54 10/27/24 07:54 10/27/24 07:54 10/27/24 07:54 10/27/24 07:54 Narrative Exam General: pleasant, morbidly obese, AOx3, no acute distress, able to speak full sentences HEENT: NC/AT, mucous membranes moist, bilateral sclera anicteric Cardiovascular: regular rate and rhythm, S1/S2 present, no murmurs appreciated Pulmonary: clear to auscultation bilaterally, no rales/rhonchi/wheezes Abdominal: soft, non-tender, non-distended, no rebound/guarding, normal bowel sounds present Musculoskeletal: normal ROM, no peripheral edema Skin: right lower extremity cellulitic rash more erythematous, still warm to touch and demarcated (rash in thigh improving) Neuro: CN II-XII intact, no focal deficits Objective Labs 10/27/24 05:12 10/27/24 05:12 Labs: Laboratory Results - last 24 hr 10/27/24 05:12 WBC 11.0 RBC 3.98 L Hgb 10.6 L Hct 34.0 L MCV 85 MCH 26.6 MCHC 31.2 RDW Std Deviation 49.3 H Plt Count 310 D Neut % (Auto) 76 Lymph % (Auto) 14 [place] % (Auto) 8 Eos % (Auto) 1 Baso % (Auto) 0 Neut # (Auto) 8.4 H Lymph # (Auto) 1.6 [place] # (Auto) 0.8 Eos # (Auto) 0.1 Baso # (Auto) 0.0 Immature Gran # (Auto) 0.09 H Absolute Nucleated RBC 0.00 Immature Gran % 1 H Nucleated RBC % 0 Sodium 138 Potassium 3.4 Chloride 102 Carbon Dioxide 24.0 Anion Gap 12 BUN 8 L Creatinine 0.8 Estim Creat Clear Calc 186.2 eGFR > 60 BUN/Creatinine Ratio 10 L Glucose 188 H Calculated Osmolality 278 Calcium 8.8 Corrected Calcium 8.8 Magnesium 2.0 Total Bilirubin 0.6 AST 31 ALT 41 Alkaline Phosphatase 91 Total Protein 7.5 Albumin 4.1 D Globulin 3.4 Albumin/Globulin Ratio 1.2 Vancomycin Trough 9.9 Quality Measures Quality Measures none Assessment & Plan Assessment Current Active Medications: Generic Name Dose Route Start Last Admin Trade Name Freq PRN Reason Stop Dose Admin Acetaminophen 650 mg 10/26/24 17:03 10/27/24 07:54 Acetaminophen 325 Mg Tablet PO 11/25/24 04:52 650 mg Q4HR PRN Administration pain 1-3 and Fever >100.4 Hydrocodone Bitart/Acetaminophen 1 tab 10/26/24 04:53 Hydrocodone/Apap 5/325 Tablet PO 10/31/24 04:52 Q4HR PRN PAIN SCALE 4-10(Mod-Sev Dextrose 25 ml 10/26/24 04:53 Dextrose 50%-Water Inj 50 Ml Syringe IV 11/25/24 04:52 Q15MIN PRN BG 50-70 responsive npo pt Dextrose 50 ml 10/26/24 04:53 Dextrose 50%-Water Inj 50 Ml Syringe IV 11/25/24 04:52 Q15MIN PRN BG <50 OR BG <70 & pt unresponsive Glucagon 1 mg 10/26/24 04:53 Glucagon Inj 1 Mg Vial IM Q15MIN PRN BG <70, and no IV access Heparin Sodium (Porcine) 5,000 unit 10/26/24 06:00 10/27/24 05:52 Heparin Sod Inj 5000 Unit/Ml Vial SC 11/09/24 05:59 5,000 unit Q8HR [place] Administration Piperacillin/Tazobactam/Dextrose 3.375 gm in 50 mls @ 12.5 mls/hr 10/26/24 06:00 10/27/24 05:49 Zosyn IV 11/02/24 05:59 12.5 mls/hr Q8HR K[facility] Administration Protocol Vancomycin HCl/Dextrose 250 mls @ 120 mls/hr 10/26/24 07:30 10/27/24 06:21 Vancomycin/D5w 1,250 Mg Ivpb IV 11/02/24 07:29 120 mls/hr Q8HR [place] Administration Protocol Doxycycline Hyclate 100 mg/ 100 mls @ 100 mls/hr 10/27/24 09:00 10/27/24 10:12 Sodium Chloride IV 11/03/24 08:59 100 mls/hr BID [facility] Administration Ibuprofen 400 mg 10/26/24 16:59 10/27/24 11:01 Ibuprofen Tab 400 Mg Tablet PO 11/25/24 16:58 400 mg Q6HR PRN Administration PAIN OR FEVER > 101 Insulin Human Lispro 0 unit 10/26/24 15:36 10/27/24 11:22 Insulin Lispro (Admelog) 1 Unit/0.01 Ml Unit SC 11/25/24 07:29 2 unit ACHS KAROLINA Administration Protocol Ondansetron HCl 4 mg 10/26/24 04:53 10/27/24 04:45 Ondansetron Inj 2 Mg/Ml Inj 2 Ml IVP 11/25/24 04:52 4 mg Q6H PRN Administration NAUSEA OR VOMITING Protocol Pharmacy Consult 1 each 10/26/24 09:00 Vancomycin Pharmacy To Dose 1 Each Each IV 11/25/24 08:59 QDAY PRN CONSULT Plan Bijal Yee is a 24-year-old female with past medical history of newly diagnosed diabetes mellitus and morbid obesity who is admitted for right lower extremity cellulitis and newly diagnosed diabetes. #Right lower extremity cellulitis Endorsed 2 to 3 days of fever, chills, sweats and then developed right lower extremity cellulitis that extends up to anterior thigh. Denies any loss of sensation or lower extremity weakness. CT lower extremity showed edema and subcutaneous fatty tissue but no signs of fasciitis or abscesses. Venous Doppler negative for DVT. ? Vancomycin and Zosyn (10/26-) ? Doxycycline 100 mg IV twice daily given exposure to body of water (10/27-) ? Blood culture 10/26: NGTD ? Continue to monitor demarcations ? Tylenol and ibuprofen for fevers #Newly diagnosed diabetes mellitus Given body habitus likely type 2 diabetes mellitus. A1c 7.5%. ? SSI ? Hypoglycemia protocol in place ? Carb consistent low diet ? Diabetic education ? Referral to registered dietitian Hospital management: Disposition: IV antibiotics, blood cultures Diet: Carb consistent low Lines: PIV DVT prophylaxis: Heparin SC every 8 hours CODE STATUS: full code ----- Plan discussed with attending physician Dr. Jackelyn Turpin MD PGY-1 Internal Medicine Attending Provider Attestation/Addendum I have examined the patient, reviewed labs and imaging findings, discussed the case with the resident(s), and reviewed entered orders. I agree with the plan of care as outlined in this note, with these additional summaries/recommendations: Patient seen at bedside. Overnight patient had fever of 103 F which did not resolve with Tylenol. Ibuprofen added to regimen with improvement in fever. This morning patient has low grade fever 100.4 F and continue antipyretics. She endorses right lower extremity discomfort and pain. Patient has significant cellulitis of right lower extremity up to mid thigh. Overall mild improvement in cellulitis compared to yesterday although still significant. Sensation intact and capillary refill <3 seconds. Continue IV antibiotics and blood cxs currently show no growth at 24 hours. Patient diagnosed with new onset diabetes mellitus type 2 with hyperglycemia. She denies a previous history. A1c 7.5%. Continue diabetic diet. Continue insulin sliding scale with Accu-Cheks. Target blood sugar of 140-180 while hospitalized. Patient was counseled on the importance of weight loss and showed understanding. Patient in agreement with the plan and all questions answered to satisfaction. Please see residents note for additional details and management. Dr. Jackelyn MD
[2024-10-27] MEDS: DiphenhydrAMINE 25 MG CAPSULE PO (15:29)
[2024-10-28] VITALS: BP 104/78; PULSE 102; TEMP 37.3; O2SAT 92
[2024-10-28 04:00] VITALS: BP 127/66; PULSE 113; RESP 20; TEMP 36.2; O2SAT 94
[2024-10-28] MEDS: PIPER/TAZO 3.375 GM PREMIX 3.375 GM/50 ML BAG IV ×3 (05:38→22:53)
[2024-10-28] MEDS: VANCOMYCIN/D5W 1,250 MG IVPB 250 ML 120 MG IV (05:38)
[2024-10-28] MEDS: HEPARIN SOD INJ 5000 UNIT/ML VIAL SC ×3 (05:42→21:23)
[2024-10-28 06:02] LABS: Basophils % (Auto) 0 % (0-2.5); Eosinophils # (Auto) 0.1 Thou/mm3 (0.0-0.5); Eosinophils % (Auto) 1 % (0-10); Hemoglobin 9.5 g/dL (12.0-16.0); Immature Granulocytes % (Auto) 1 % (0-0); Immature Granulocytes Auto 0.11 Thou/mm3 (0.00-0.00); Lymphocytes % (Auto) 19 % (10-50); Mean Corpuscular HGB Conc 31.7 g/dl (31.0-37.0); Mean Corpuscular Hemoglobin 26.6 pg (25.0-35.0); Mean Corpuscular Volume 84 fL (80-100); Monocytes # (Auto) 0.9 Thou/mm3 (0.0-0.8); Monocytes % (Auto) 9 % (0-12); Neutrophils % (Auto) 70 % (37-80); Nucleated Red Blood Cell % 0 /100 WBC (0); Platelet Count 297 Thou/mm3 (140-440); RDW Standard Deviation 49.1 fL (36.4-46.3); Red Blood Count 3.57 Miln/mm3 (4.00-5.20); White Blood Count 10.1 Thou/mm3 (3.6-11.0)
[2024-10-28 06:23] LABS: Alanine Aminotransferase 30 U/L (10-49); Albumin, Serum 3.7 gm/dL (3.5-5.0); Albumin/Globulin Ratio 1.2 (1.2-2.2); Alkaline Phosphatase 81 U/L (46-116); Anion Gap 11 (7-16); Aspartate Amino Transferase 27 U/L (0-34); BUN/Creatinine Ratio 9 Ratio (12-20); Bilirubin,Total 0.4 mg/dL (0.3-1.2); Blood Urea Nitrogen 7 mg/dL (9-23); Calcium 8.7 mg/dL (8.3-10.6); Calcium (Corrected) 8.9 mg/dL (8.5-10.1); Carbon Dioxide 26.7 mMol/L (20.0-31.0); Chloride 102 mMol/L (98-107); Creatinine (Component) 0.8 mg/dL (0.6-1.3); Estimated Creatinine Clearance 186.2 mL/min (>60); Globulin 3.2 gm/dL (2.3-3.5); Glucose 141 mg/dL (74-106); Magnesium 2.1 mg/dL (1.6-2.6); Osmolality,Calculated 279 (275-295); Potassium 3.4 mMol/L (3.4-5.1); Sodium 140 mMol/L (136-145); Total Protein 6.9 gm/dL (5.7-8.2); eGFR > 60 See Note
[2024-10-28] MEDS: INSULIN LISPRO (AdmeLOG) 1 UNIT/0.01 ML UNIT SC (07:36)
[2024-10-28 08:00] VITALS: BP 138/89; PULSE 115; RESP 18; TEMP 36.6; O2SAT 95
--- NOTE | 2024-10-28 09:37 | ESPR_ITS ---
Documentation for date of: 10/28/24 Subjective Subjective Interval history: Patient was seen and examined at bedside. No acute overnight events. Yesterday patient had episode of fever, however otherwise patient is hemodynamically stable, labs were reviewed which showed that leukocytosis has resolved, lower extremity edema as well as erythema significantly subsided. Blood sugars well- controlled, blood cultures - is negative for the 48 hours, vancomycin was discontinued, for now we will continue with Zosyn and doxycycline, monitor 1 more day, and if patient stays afebrile and stable anticipate discharge in next 24 hours on p.o. Augmentin and doxycycline. Mother was at bedside all questions and concerns were addressed. Exam Vital Signs Temp Pulse Resp BP Pulse Ox O2 Del Method 97.1 F 113 H 20 127/66 94 L Room Air 10/28/24 04:00 10/28/24 04:00 10/28/24 04:00 10/28/24 04:00 10/28/24 04:00 10/28/24 04:00 Narrative Exam General: pleasant, morbidly obese, AOx3, no acute distress, able to speak full sentences HEENT: NC/AT, mucous membranes moist, bilateral sclera anicteric Cardiovascular: regular rate and rhythm, S1/S2 present, no murmurs appreciated Pulmonary: clear to auscultation bilaterally, no rales/rhonchi/wheezes Abdominal: soft, non-tender, non-distended, no rebound/guarding, normal bowel sounds present Musculoskeletal: normal ROM, no peripheral edema Skin: right lower extremity erythema significantly subsided compared to yesterday, still warm to touch. Neuro: CN II-XII intact, no focal deficits Objective Labs 10/28/24 04:35 10/28/24 04:35 Labs: Laboratory Results - last 24 hr 10/28/24 04:35 WBC 10.1 RBC 3.57 L Hgb 9.5 L Hct 30.0 L MCV 84 MCH 26.6 MCHC 31.7 RDW Std Deviation 49.1 H Plt Count 297 Neut % (Auto) 70 Lymph % (Auto) 19 [place] % (Auto) 9 Eos % (Auto) 1 Baso % (Auto) 0 Neut # (Auto) 7.0 Lymph # (Auto) 2.0 [place] # (Auto) 0.9 H Eos # (Auto) 0.1 Baso # (Auto) 0.0 Immature Gran # (Auto) 0.11 H Absolute Nucleated RBC 0.00 Immature Gran % 1 H Nucleated RBC % 0 Sodium 140 Potassium 3.4 Chloride 102 Carbon Dioxide 26.7 Anion Gap 11 BUN 7 L Creatinine 0.8 Estim Creat Clear Calc 186.2 eGFR > 60 BUN/Creatinine Ratio 9 L Glucose 141 H Calculated Osmolality 279 Calcium 8.7 Corrected Calcium 8.9 Magnesium 2.1 Total Bilirubin 0.4 AST 27 ALT 30 Alkaline Phosphatase 81 Total Protein 6.9 Albumin 3.7 Globulin 3.2 Albumin/Globulin Ratio 1.2 Quality Measures Quality Measures none Assessment & Plan Assessment Current Active Medications: Generic Name Dose Route Start Last Admin Trade Name Freq PRN Reason Stop Dose Admin Acetaminophen 650 mg 10/26/24 17:03 10/27/24 18:48 Acetaminophen 325 Mg Tablet PO 11/25/24 04:52 650 mg Q4HR PRN Administration pain 1-3 and Fever >100.4 Hydrocodone Bitart/Acetaminophen 1 tab 10/26/24 04:53 Hydrocodone/Apap 5/325 Tablet PO 10/31/24 04:52 Q4HR PRN PAIN SCALE 4-10(Mod-Sev Dextrose 25 ml 10/26/24 04:53 Dextrose 50%-Water Inj 50 Ml Syringe IV 11/25/24 04:52 Q15MIN PRN BG 50-70 responsive npo pt Dextrose 50 ml 10/26/24 04:53 Dextrose 50%-Water Inj 50 Ml Syringe IV 11/25/24 04:52 Q15MIN PRN BG <50 OR BG <70 & pt unresponsive Diphenhydramine HCl 25 mg 10/27/24 15:18 10/27/24 15:29 Diphenhydramine 25 Mg Capsule PO 11/26/24 15:17 25 mg Q6HR PRN Administration Rash, itchiness Glucagon 1 mg 10/26/24 04:53 Glucagon Inj 1 Mg Vial IM Q15MIN PRN BG <70, and no IV access Heparin Sodium (Porcine) 5,000 unit 10/26/24 06:00 10/28/24 05:42 Heparin Sod Inj 5000 Unit/Ml Vial SC 11/09/24 05:59 5,000 unit Q8HR [place] Administration Piperacillin/Tazobactam/Dextrose 3.375 gm in 50 mls @ 12.5 mls/hr 10/26/24 06:00 10/28/24 05:38 Zosyn IV 11/02/24 05:59 12.5 mls/hr Q8HR [facility] Administration Protocol Doxycycline Hyclate 100 mg/ 100 mls @ 100 mls/hr 10/27/24 09:00 10/27/24 20:25 Sodium Chloride IV 11/03/24 08:59 100 mls/hr BID [place] Administration Ibuprofen 400 mg 10/26/24 16:59 10/27/24 11:01 Ibuprofen Tab 400 Mg Tablet PO 11/25/24 16:58 400 mg Q6HR PRN Administration PAIN OR FEVER > 101 Insulin Human Lispro 0 unit 10/26/24 15:36 10/28/24 07:36 Insulin Lispro (Admelog) 1 Unit/0.01 Ml Unit SC 11/25/24 07:29 2 unit ACHS [facility] Administration Protocol Ondansetron HCl 4 mg 10/26/24 04:53 10/27/24 04:45 Ondansetron Inj 2 Mg/Ml Inj 2 Ml IVP 11/25/24 04:52 4 mg Q6H PRN Administration NAUSEA OR VOMITING Protocol Plan Bijal Yee is a 24-year-old female with past medical history of newly diagnosed diabetes mellitus and morbid obesity who is admitted for right lower extremity cellulitis and newly diagnosed diabetes. #Right lower extremity cellulitis?improving Endorsed 2 to 3 days of fever, chills, sweats and then developed right lower extremity cellulitis that extends up to anterior thigh. Denies any loss of sensation or lower extremity weakness. CT lower extremity showed edema and subcutaneous fatty tissue but no signs of fasciitis or abscesses. Venous Doppler negative for DVT. ? vancomycin was discontinued 10/26 - 10/28 ? Zosyn (10/26-) ? Doxycycline 100 mg IV twice daily given exposure to body of water (10/27-) ? Blood culture 10/26: NGTD ? Continue to monitor demarcations ? Tylenol and ibuprofen for fevers #Newly diagnosed diabetes mellitus Given body habitus likely type 2 diabetes mellitus. A1c 7.5%. ? SSI ? Hypoglycemia protocol in place ? Carb consistent low diet ? Diabetic education ? Referral to registered dietitian Hospital management: Disposition: IV antibiotics Diet: Carb consistent low Lines: PIV DVT prophylaxis: Heparin SC every 8 hours CODE STATUS: full code Patient care was discussed with attending physician Dr. Mia Taylor, MD PGY-2 Attending Provider Attestation/Addendum I attest that I was physically present for the evaluation, physical examination, lab and imaging review of the patient with the residents. I discussed the case with the residents and agree with the findings and plans of care as documented above. At bedside today, patient states she is feeling better and denies any new complaints. Vital signs are stable except for mild tachycardia. Lab results show improving WBC. Last febrile episode was yesterday night. Blood cultures have been negative. We will discontinue vancomycin. Continues to be on IV Zosyn and doxycycline. We will continue to monitor overnight. If patient continues to improve, without febrile episode, anticipate discharge in next 24 hours. Jose Rafael Bellamy MD
[2024-10-28] MEDS: DOXYCYCLINE INJ 100 MG in SODIUM CHLORIDE 0.9% (POP) 100 ML IV ×2 (11:14→21:23)
[2024-10-28 12:00] VITALS: BP 112/78; PULSE 101; RESP 18; TEMP 36.5; O2SAT 98
[2024-10-28] MEDS: ONDANSETRON INJ 2 MG/ML INJ 2 ML 4 MG IVP ×2 (12:24→21:22)
[2024-10-28 16:00] VITALS: BP 119/79; PULSE 104; RESP 20; TEMP 36.4; O2SAT 96
[2024-10-28 20:00] VITALS: BP 140/66; PULSE 101; RESP 18; TEMP 36.1; O2SAT 95
[2024-10-28] MEDS: ACETAMINOPHEN 325 MG TABLET 650 MG PO (21:22)
[2024-10-29] VITALS: BP 116/84; PULSE 102; RESP 18; TEMP 36.1; O2SAT 93
[2024-10-29 04:00] VITALS: BP 121/70; PULSE 100; RESP 18; TEMP 36.3; O2SAT 95
[2024-10-29 05:24] LABS: Basophils # (Auto) 0.1 Thou/mm3 (0.0-0.2); Basophils % (Auto) 1 % (0-2.5); Eosinophils # (Auto) 0.1 Thou/mm3 (0.0-0.5); Eosinophils % (Auto) 1 % (0-10); Hematocrit 31.5 % (36.0-46.0); Hemoglobin 10.2 g/dL (12.0-16.0); Immature Granulocytes % (Auto) 3 % (0-0); Immature Granulocytes Auto 0.39 Thou/mm3 (0.00-0.00); Lymphocytes # (Auto) 2.4 Thou/mm3 (1.0-4.8); Lymphocytes % (Auto) 19 % (10-50); Mean Corpuscular HGB Conc 32.4 g/dl (31.0-37.0); Mean Corpuscular Volume 83 fL (80-100); Monocytes % (Auto) 8 % (0-12); Neutrophils # (Auto) 8.4 Thou/mm3 (1.8-7.7); Neutrophils % (Auto) 68 % (37-80); Nucleated Red Blood Cell % 0 /100 WBC (0); Platelet Count 341 Thou/mm3 (140-440); RDW Standard Deviation 49.1 fL (36.4-46.3); Red Blood Count 3.78 Miln/mm3 (4.00-5.20); White Blood Count 12.4 Thou/mm3 (3.6-11.0)
[2024-10-29 05:48] LABS: Alanine Aminotransferase 25 U/L (10-49); Albumin, Serum 3.8 gm/dL (3.5-5.0); Albumin/Globulin Ratio 1.2 (1.2-2.2); Alkaline Phosphatase 89 U/L (46-116); Anion Gap 10 (7-16); Aspartate Amino Transferase 30 U/L (0-34); BUN/Creatinine Ratio 8 Ratio (12-20); Bilirubin,Total 0.4 mg/dL (0.3-1.2); Blood Urea Nitrogen 8 mg/dL (9-23); Calcium 8.8 mg/dL (8.3-10.6); Chloride 104 mMol/L (98-107); Globulin 3.2 gm/dL (2.3-3.5); Glucose 123 mg/dL (74-106); Osmolality,Calculated 274 (275-295); Potassium 3.6 mMol/L (3.4-5.1); Sodium 138 mMol/L (136-145); eGFR > 60 See Note
[2024-10-29] MEDS: PIPER/TAZO 3.375 GM PREMIX 3.375 GM/50 ML BAG IV (05:59)
[2024-10-29] MEDS: HEPARIN SOD INJ 5000 UNIT/ML VIAL SC ×3 (06:00→21:32)
[2024-10-29 07:47] VITALS: BP 95/78; PULSE 89; RESP 18; TEMP 36.3; O2SAT 95
[2024-10-29] MEDS: DOXYCYCLINE INJ 100 MG in SODIUM CHLORIDE 0.9% (POP) 100 ML IV (08:26)
--- NOTE | 2024-10-29 10:02 | PD.RESDS ---
Planned Discharge Date 10/29/24 DS: Providers Provider Date of admission: 10/27/24 14:19 Primary care physician: Pierre Benitez MD Admitting Provider: David Garcia MD Attending Provider on Admission: Jose Rafael Bellamy MD Consults: 10/26/24 07:00 Referral Registered Dietitian Routine Comment: Attending Provider on DC: Levon Turpin MD Discharging Provider: Levon Turpin MD Hospital Course Hospital Course Hospital course: Patient was seen and examined at bedside. No acute overnight events. Yesterday patient had episode of fever, however otherwise patient is hemodynamically stable, labs were reviewed which showed that leukocytosis has resolved, lower extremity edema as well as erythema significantly subsided. Blood sugars well-controlled, blood cultures - is negative for the 48 hours, vancomycin was discontinued, for now we will continue with Zosyn and doxycycline, monitor 1 more day, and if patient stays afebrile and stable anticipate discharge in next 24 hours on p.o. Augmentin and doxycycline. Mother was at bedside all questions and concerns were addressed. Time Spent with Patient Time attestation: Total time spent providing and/or coordinating discharge services: Exam Vital Signs Temp Pulse Resp BP Pulse Ox O2 Del Method 97.3 F 89 18 95/78 95 Room Air 10/29/24 07:47 10/29/24 07:47 10/29/24 07:47 10/29/24 07:47 10/29/24 07:47 10/29/24 07:47 Discharge Plan Plan Patient Disposition: HOME (Self Care) Prescriptions/Referrals Prescriptions/Med Rec: New metformin 500 mg tablet 500 mg PO BID Qty: 60 0RF doxycycline monohydrate 100 mg tablet 100 mg PO BID 7 Days Qty: 14 0RF amoxicillin-pot clavulanate 875-125 mg tablet 1 tab PO BID 7 Days Qty: 14 0RF Referrals: Pierre Mckeon MD [Primary Care Provider] - Patient/Caregiver Discharge Instructions Discharge Activity: activity as tolerated Other Discharge Activity Instructions:: Take Augmentin 1000 mg twice daily along with doxycycline 100 mg twice daily for 7 more days to complete lower extremity cellulitis treatment Start taking metformin 500 mg twice daily Follow-up outpatient with primary care provider in 1 to 2 weeks after discharge Return to the ED if symptoms worsen Education Materials: Discharge Instructions for Cellulitis, Diabetes Carbs Fats Protein Print Language: Bahamian Stand Alone Forms: [facility] Award Info., Patient Portal Info Letter Discharge Order Discharge Orders: Discharge (Routine); Ordered 10/29/24 Ordered By: Levon Turpin
[2024-10-29] MEDS: HYDROcodone/APAP 5/325 TABLET 1 TAB PO (11:14)
[2024-10-29 11:58] VITALS: BP 104/58; PULSE 92; RESP 18; TEMP 36.3; O2SAT 95
--- NOTE | 2024-10-29 12:03 | PD.RESPRO ---
Documentation for date of: 10/29/24 Subjective Subjective Interval history: No acute overnight events. Seen and examined at bedside and patient endorses shocklike pain in her right lower extremity. States that she is still able to move her toes and denies any numbness/tingling in right lower extremity. Upon evaluation of rash, appears to be more erythematous compared to yesterday per report and still edematous and warm to touch. Although patient has been afebrile for 24 hours, given exam findings will continue to examine for of the day but will change current regimen of Zosyn and doxycycline to levofloxacin, cephalexin, and Flagyl given exposure to fresh water. Afebrile is notable for, no longer tachycardic, and on room air. CBC showed increase in WBC from 10 to 12, hemoglobin stable. CHEM panel unremarkable. Exam Vital Signs Temp Pulse Resp BP Pulse Ox O2 Del Method 97.3 F 92 18 104/58 L 95 Room Air 10/29/24 11:58 10/29/24 11:58 10/29/24 11:58 10/29/24 11:58 10/29/24 11:58 10/29/24 11:58 Narrative Exam General: pleasant, morbidly obese, AOx3, no acute distress, able to speak full sentences HEENT: NC/AT, mucous membranes moist, bilateral sclera anicteric Cardiovascular: regular rate and rhythm, S1/S2 present, no murmurs appreciated Pulmonary: clear to auscultation bilaterally, no rales/rhonchi/wheezes Abdominal: soft, non-tender, non-distended, no rebound/guarding, normal bowel sounds present Musculoskeletal: normal ROM, no peripheral edema Skin: right lower extremity cellulitic rash still erythematous, warm to touch but remains within demarcations (rash in thigh improving) Neuro: CN II-XII intact, no focal deficits Objective Labs 10/29/24 04:17 10/29/24 04:17 Labs: Laboratory Results - last 24 hr 10/29/24 04:17 WBC 12.4 H RBC 3.78 L Hgb 10.2 L Hct 31.5 L MCV 83 MCH 27.0 MCHC 32.4 RDW Std Deviation 49.1 H Plt Count 341 D Neut % (Auto) 68 Lymph % (Auto) 19 Davison % (Auto) 8 Eos % (Auto) 1 Baso % (Auto) 1 Neut # (Auto) 8.4 H Lymph # (Auto) 2.4 Davison # (Auto) 1.0 H Eos # (Auto) 0.1 Baso # (Auto) 0.1 Immature Gran # (Auto) 0.39 H Absolute Nucleated RBC 0.00 Immature Gran % 3 H Nucleated RBC % 0 Sodium 138 Potassium 3.6 Chloride 104 Carbon Dioxide 24.0 Anion Gap 10 BUN 8 L Creatinine 1.0 Estim Creat Clear Calc 149.0 eGFR > 60 BUN/Creatinine Ratio 8 L Glucose 123 H Calculated Osmolality 274 L Calcium 8.8 Corrected Calcium 9.0 Total Bilirubin 0.4 AST 30 ALT 25 Alkaline Phosphatase 89 Total Protein 7.0 Albumin 3.8 Globulin 3.2 Albumin/Globulin Ratio 1.2 Quality Measures Quality Measures none Assessment & Plan Assessment Current Active Medications: Generic Name Dose Route Start Last Admin Trade Name Freq PRN Reason Stop Dose Admin Acetaminophen 650 mg 10/26/24 17:03 10/28/24 21:22 Acetaminophen 325 Mg Tablet PO 11/25/24 04:52 650 mg Q4HR PRN Administration pain 1-3 and Fever >100.4 Hydrocodone Bitart/Acetaminophen 1 tab 10/26/24 04:53 10/29/24 11:14 Hydrocodone/Apap 5/325 Tablet PO 10/31/24 04:52 1 tab Q4HR PRN Administration PAIN SCALE 4-10(Mod-Sev Cephalexin HCl 500 mg 10/29/24 12:00 Cephalexin 250 Mg Capsule PO 11/05/24 11:59 QID KAROLINA Dextrose 25 ml 10/26/24 04:53 Dextrose 50%-Water Inj 50 Ml Syringe IV 11/25/24 04:52 Q15MIN PRN BG 50-70 responsive npo pt Dextrose 50 ml 10/26/24 04:53 Dextrose 50%-Water Inj 50 Ml Syringe IV 11/25/24 04:52 Q15MIN PRN BG <50 OR BG <70 & pt unresponsive Diphenhydramine HCl 25 mg 10/27/24 15:18 10/27/24 15:29 Diphenhydramine 25 Mg Capsule PO 11/26/24 15:17 25 mg Q6HR PRN Administration Rash, itchiness Glucagon 1 mg 10/26/24 04:53 Glucagon Inj 1 Mg Vial IM Q15MIN PRN BG <70, and no IV access Heparin Sodium (Porcine) 5,000 unit 10/26/24 06:00 10/29/24 06:00 Heparin Sod Inj 5000 Unit/Ml Vial SC 11/09/24 05:59 5,000 unit Q8HR [facility] Administration Levofloxacin/Dextrose 750 mg in 150 mls @ 100 mls/hr 10/29/24 12:00 Levaquin Ivpb IV 11/05/24 11:59 QDAY KAROLINA Metronidazole 500 mg in 100 mls @ 200 mls/hr 10/29/24 12:00 Flagyl 500 Mg Iv IV 11/05/24 11:59 Q6HR KAROLINA Ibuprofen 400 mg 10/26/24 16:59 10/27/24 11:01 Ibuprofen Tab 400 Mg Tablet PO 11/25/24 16:58 400 mg Q6HR PRN Administration PAIN OR FEVER > 101 Insulin Human Lispro 0 unit 10/26/24 15:36 10/29/24 11:19 Insulin Lispro (Admelog) 1 Unit/0.01 Ml Unit SC 11/25/24 07:29 Not Given ACHS [facility] Protocol Ondansetron HCl 4 mg 10/26/24 04:53 10/28/24 21:22 Ondansetron Inj 2 Mg/Ml Inj 2 Ml IVP 11/25/24 04:52 4 mg Q6H PRN Administration NAUSEA OR VOMITING Protocol Plan Bijal Yee is a 24-year-old female with past medical history of newly diagnosed diabetes mellitus and morbid obesity who is admitted for right lower extremity cellulitis and newly diagnosed diabetes. #Right lower extremity cellulitis Endorsed 2 to 3 days of fever, chills, sweats and then developed right lower extremity cellulitis that extends up to anterior thigh. Denies any loss of sensation or lower extremity weakness. CT lower extremity showed edema and subcutaneous fatty tissue but no signs of fasciitis or abscesses. Venous Doppler negative for DVT. Antibiotics during hospitalization: Vancomycin (10/26-10/28) Zosyn (10/26-10/29) Doxycycline (10/27/10/29) ? Cephalexin 500 mg p.o. QID (10/29-) ? Levofloxacin 750 mg IV daily (10/29-) ? Metronidazole 500 mg IV QID (10/29-) ? Blood culture 10/26: NGTD ? Continue to monitor demarcations ? Tylenol and ibuprofen for fevers ? ESR and CRP in AM #Newly diagnosed diabetes mellitus Given body habitus likely type 2 diabetes mellitus. A1c 7.5%. ? SSI ? Hypoglycemia protocol in place ? Carb consistent low diet ? Diabetic education ? Referral to registered dietitian Hospital management: Disposition: IV antibiotics Diet: Carb consistent low Lines: PIV DVT prophylaxis: Heparin SC every 8 hours CODE STATUS: full code ----- Plan discussed with attending physician Dr. Mia Turpin MD PGY-1 Internal Medicine Attending Provider Attestation/Addendum I attest that I was physically present for the evaluation, physical examination, lab and imaging review of the patient with the residents. I discussed the case with the residents and agree with the findings and plans of care as documented above. At bedside today, patient states she is feeling well. Continues to have shocklike pain in her lower extremity. Denies any numbness or tingling. Noted to have slightly worsening edema, erythema and tenderness compared to yesterday. Her WBC count also went from 10.1-12.4. Lab results and glucose are stable. We will switch her antibiotics to cephalexin, levofloxacin and metronidazole as there was a concern of fresh water related cellulitis. We will monitor closely for 1 more day, we will also obtain ESR and CRP level. Jose Rafael Bellamy MD
[2024-10-29] MEDS: LEVOFLOXACIN/D5W 750MG IVPB 750 MG/150 ML BAG 100 MG IV (12:44)
[2024-10-29] MEDS: cephALEXin 250 MG CAPSULE 500 MG PO ×3 (12:44→20:38)
[2024-10-29] MEDS: metroNIDAZOLE/NS 500 MG IVPB 500 MG/100 ML BAG 200 MG IV ×3 (12:44→23:28)
--- NOTE | 2024-10-29 14:44 | PC.SS ---
SS follow up note; Patient had IV ABX switched. Patient will possible discharge home within 1-2 days.
[2024-10-29 16:00] VITALS: BP 140/90; PULSE 84; RESP 18; TEMP 36.3; O2SAT 95
[2024-10-29] MEDS: ACETAMINOPHEN 325 MG TABLET 650 MG PO ×2 (17:13→23:31)
[2024-10-29 19:58] VITALS: BP 143/89; PULSE 108; RESP 17; TEMP 36.2; O2SAT 94
[2024-10-30] VITALS: BP 130/53; PULSE 97; RESP 18; TEMP 36.5; O2SAT 95
[2024-10-30 04:00] VITALS: BP 108/78; PULSE 102; RESP 18; TEMP 36.3; O2SAT 96
[2024-10-30] MEDS: cephALEXin 250 MG CAPSULE 500 MG PO ×2 (05:06→11:33)
[2024-10-30] MEDS: metroNIDAZOLE/NS 500 MG IVPB 500 MG/100 ML BAG 200 MG IV ×2 (05:06→11:34)
[2024-10-30] MEDS: HEPARIN SOD INJ 5000 UNIT/ML VIAL SC (05:07)
[2024-10-30 05:29] LABS: Basophils % (Auto) 0 % (0-2.5); Eosinophils # (Auto) 0.2 Thou/mm3 (0.0-0.5); Eosinophils % (Auto) 2 % (0-10); Hematocrit 31.2 % (36.0-46.0); Hemoglobin 9.8 g/dL (12.0-16.0); Immature Granulocytes % (Auto) 4 % (0-0); Immature Granulocytes Auto 0.46 Thou/mm3 (0.00-0.00); Lymphocytes # (Auto) 1.9 Thou/mm3 (1.0-4.8); Lymphocytes % (Auto) 15 % (10-50); Mean Corpuscular HGB Conc 31.4 g/dl (31.0-37.0); Mean Corpuscular Hemoglobin 27.3 pg (25.0-35.0); Mean Corpuscular Volume 87 fL (80-100); Monocytes # (Auto) 0.9 Thou/mm3 (0.0-0.8); Monocytes % (Auto) 8 % (0-12); Neutrophils # (Auto) 8.9 Thou/mm3 (1.8-7.7); Neutrophils % (Auto) 72 % (37-80); Nucleated Red Blood Cell % 0 /100 WBC (0); RDW Standard Deviation 50.4 fL (36.4-46.3); Red Blood Count 3.59 Miln/mm3 (4.00-5.20); White Blood Count 12.4 Thou/mm3 (3.6-11.0)
[2024-10-30 06:06] LABS: Alanine Aminotransferase 21 U/L (10-49); Albumin, Serum 3.8 gm/dL (3.5-5.0); Albumin/Globulin Ratio 1.2 (1.2-2.2); Alkaline Phosphatase 80 U/L (46-116); Anion Gap 11 (7-16); Aspartate Amino Transferase 25 U/L (0-34); BUN/Creatinine Ratio 7 Ratio (12-20); Bilirubin,Total 0.4 mg/dL (0.3-1.2); Blood Urea Nitrogen 7 mg/dL (9-23); Calcium 8.8 mg/dL (8.3-10.6); Carbon Dioxide 23.5 mMol/L (20.0-31.0); Chloride 104 mMol/L (98-107); Globulin 3.2 gm/dL (2.3-3.5); Glucose 116 mg/dL (74-106); Osmolality,Calculated 274 (275-295); Potassium 3.8 mMol/L (3.4-5.1); Sodium 138 mMol/L (136-145); eGFR > 60 See Note
[2024-10-30 06:20] LABS: C-Reactive Protein 14.3 mg/dL (0.0-0.9)
[2024-10-30 07:25] VITALS: BP 113/74; PULSE 83; RESP 18; TEMP 36.3; O2SAT 96
[2024-10-30 08:03] LABS: Sed Rate (ESR) 102 mm/hr (0-20)
[2024-10-30] MEDS: LEVOFLOXACIN/D5W 750MG IVPB 750 MG/150 ML BAG 100 MG IV (09:06)
[2024-10-30] MEDS: ACETAMINOPHEN 325 MG TABLET 650 MG PO (09:13)
--- NOTE | 2024-10-30 11:20 | PD.RESDS ---
Planned Discharge Date 10/30/24 DS: Providers Provider Date of admission: 10/27/24 14:19 Primary care physician: Pierre Benitez MD Admitting Provider: David Garcia MD Attending Provider on Admission: Jose Rafael Bellamy MD Consults: 10/26/24 07:00 Referral Registered Dietitian Routine Comment: Attending Provider on DC: Levon Turpin MD Discharging Provider: Levon Turpin MD DS: Diagnosis Problem List Completed Was Problem List Reviewed/Reconciled?: Yes Hospital Course Hospital Course Hospital course: Bijal Yee is a 24-year-old female with no past medical history who presented on 10/26 for right lower extremity swelling and erythema that started on day of presentation. She also endorsed associated fever, chills, fatigue and weakness two days prior. Of note, states she had gone to a [place] about one week prior to presentation as well and did spend time in the water. Rash itself was originally confied to anterior cruz but then grew lateally and superiorly but did not go past the ankles. She was originally started on vanomycin and zosyn on admission for which vancomycin was switched to doxycycline given water exposure. Patient did spike fevers on first two nights of hospitalization and rash did not show significant improvement on zosyn and doxycycline, so regimen was changed to levofloxacin, cephalexin, and metronidazole to specifically cover for microbes related to fresh water exposure. After 24 hours, rash appeared to have improved and will discharge patient on same regimen with close return precautions and follow-up with ESR and CRP in one week. At time of discharge, patient was afebrile for 48+ hours and WBC mildly elevated at 12.4, and blood cultures negative after 48 hours. Of note, patient also newly diagnosed with diabetes with A1c of 7.5% and will be discharged with metformin in addition to 7 day course of antibiotics. Diagnoses during admission: #Right lower extremity cellulitis #Newly diagnosed diabetes mellitus Discharge instructions: ? Take cephalexin four times per day, metronidazole four times per day, and levofloxacin one time per day for 7 more days to complete antibiotic course ? Start taking metformin 500 mg twice daily ? Obtain CRP and ESR levels within one week of discharge ? Follow-up with Primary Care Provider within 1-2 weeks of discharge ? If you do not have a Primary Care Provider, you can follow-up at the [facility] (you can call [phone] to make an appointment) ? If you wish to follow-up with Dr. Turpin, schedule appointment on Sunday ? Return to ED if symptoms worsen or recur ----- Plan discussed with attending physician Dr. Mia Turpin MD PGY-1 Internal Medicine Time Spent with Patient Time attestation: Total time spent providing and/or coordinating discharge services: Time spent: Less than 30 minutes Exam Vital Signs Temp Pulse Resp BP Pulse Ox O2 Del Method 97.3 F 83 18 113/74 96 Room Air 10/30/24 07:25 10/30/24 07:25 10/30/24 07:25 10/30/24 07:25 10/30/24 07:25 10/30/24 07:25 Narrative Exam General: pleasant, morbidly obese, AOx3, no acute distress, able to speak full sentences HEENT: NC/AT, mucous membranes moist, bilateral sclera anicteric Cardiovascular: regular rate and rhythm, S1/S2 present, no murmurs appreciated Pulmonary: clear to auscultation bilaterally, no rales/rhonchi/wheezes Abdominal: soft, non-tender, non-distended, no rebound/guarding, normal bowel sounds present Musculoskeletal: normal ROM, no peripheral edema Skin: right lower extremity cellulitic rash still erythematous but overall improving Neuro: CN II-XII intact, no focal deficits Discharge Plan Plan Patient Disposition: HOME (Self Care) Care Plan Goals: ? Take cephalexin four times per day, metronidazole four times per day, and levofloxacin one time per day for 7 more days to complete antibiotic course ? Start taking metformin 500 mg twice daily ? Obtain CRP and ESR levels within one week of discharge ? Follow-up with Primary Care Provider within 1-2 weeks of discharge ? If you do not have a Primary Care Provider, you can follow-up at the [facility] (you can call [phone] to make an appointment) ? If you wish to follow-up with Dr. Turpin, schedule appointment on Sunday ? Return to ED if symptoms worsen or recur Prescriptions/Referrals Prescriptions/Med Rec: New metformin 500 mg tablet 500 mg PO BID Qty: 60 0RF cephalexin 500 mg capsule 500 mg PO QID 7 Days Qty: 28 0RF levofloxacin 750 mg tablet 750 mg PO QDAY 7 Days Qty: 7 0RF metronidazole 500 mg tablet 500 mg PO QID 7 Days Qty: 28 0RF Referrals: Pierre Mckeon MD [Primary Care Provider] - Outpatient Orders (i.e. Home Health, Labs, Imaging): C-Reactive Protein (Routine) Timeframe: 1 Week Location: None Selected Ordered By: Levon Turpin Sed Rate (ESR) (Routine) Timeframe: 1 Week Location: None Selected Ordered By: Levon Turpin Patient/Caregiver Discharge Instructions Discharge Activity: activity as tolerated Education Materials: Discharge Instructions for Cellulitis, Diabetes Carbs Fats Protein Print Language: Norwegian Stand Alone Forms: Anabel Award Info., Patient Portal Info Letter Discharge Order Discharge Orders: Discharge (Routine); Ordered 10/30/24 Ordered By: Levon Trupin Quality Discharge Quality Measures VTE prophylaxis MD Attestestation MD Attestation I attest that I was physically present for the evaluation, physical examination, lab and imaging review of the patient with the residents. I discussed the case with the residents and agree with the findings and plans of care as documented above. Jose Rafael Bellamy MD
[2024-10-30 11:33] VITALS: BP 130/93; PULSE 94; RESP 18; TEMP 36.3; O2SAT 96
[2024-10-30 12:26] LABS: Platelet Count 311 Thou/mm3 (140-440)
== END 2024-10-30 13:00 | disposition home or self-care (01) | DRG 383 ==
LOC: SERX 03:17 → SERHOLD 05:09 → S3SX 06:30
PROVIDERS: Physician Assistant; Student in an Organized Health Care Education/Training Program; Admitting Provider Student in an Organized Health Care Education/Training Program; Emergency Provider Emergency Medicine; PCP Internal Medicine; Visit Provider Student in an Organized Health Care Education/Training Program
DX: L03.115 Cellulitis of right lower limb (principal); E11.65 Type 2 diabetes mellitus with hyperglycemia; E66.01 Morbid (severe) obesity due to excess calories; Z68.45 Body mass index [BMI] 70 or greater, adult; Z79.84 Long term (current) use of oral hypoglycemic drugs
CPT/HCPCS: 36415; 73701; 80053; 80061; 80202; 83036; 83605; 83735; 84145; 85025; 85652; 86140; 87040; 87811; 93971; 96365; 96366; 96367; 96375; 99285; A4649; G0378; J1644; J1815; J1885; J1956; J2405; J2543; J3370; J3490; J7030; J7120; J7999; Q9967; A9270; J1836